=== PATIENT | male | born 1945 | race Caucasian/White ===

== ENCOUNTER 2017-04-18 12:58 | Observation (INO) | payer OTHER, MEDICARE ==
[~2017-04-18] VITALS: Ht 177.8 cm; Wt 97.6 kg
[2017-04-18 14:56] LABS: EOSINOPHIL (%) 8.1 % (0-5); EOSINOPHIL COUNT 0.6 K/uL (0-0.3); HEMATOCRIT 37.2 % (38.0-50.0); IMMATURE GRANULOCYTE (%) 0.4 % (0.0-0.7); LYMPHOCYTE COUNT 1.5 K/uL (1.0-2.8); MCH 29.6 PG (29.0-34.0); MCHC 32.5 G/DL (30.0-36.0); MEAN PLAT.VOLUME 11.5 uM^3 (9.0-12.4); MONOCYTE (%) 9.6 % (3-12); MONOCYTE COUNT 0.8 K/uL (0-0.8); PLATELET COUNT 226 K/uL (156-360); RBC DIS.WIDTH-SD 42.6 % (39-53); RED BLOOD COUNT 4.09 M/uL (4.00-5.50); WHITE BLOOD COUNT 7.9 K/uL (4.1-10.2)
[2017-04-18 15:02] LABS: INTER. NORMALIZED RATIO 1.1; PROTHROMBIN TIME 12.1 SEC (10.2-12.9)
[2017-04-18 15:05] LABS: PTT 32.4 SEC (25-37)
[2017-04-18 15:06] LABS: CHLORIDE 109 mEq/L (99-109); POTASSIUM 4.6 mEq/L (3.7-5.4); SODIUM 144 mEq/L (136-147)
[2017-04-18 15:08] LABS: GLUCOSE 85 mg/dL (70-99)
[2017-04-18 15:09] LABS: ANION GAP 12 MEQ/L (2-14)
[2017-04-18 15:11] LABS: GFR ESTIMATE (CALCULATED) 40 mL/min/
[2017-04-18 15:12] LABS: UREA NITROGEN (BUN) 24 mg/dL (9-23)
[2017-04-18 15:18] LABS: TROP-I INTERPRETATION NEGATIVE; TROPONIN-I 0.03 ng/mL (0.0-0.30)
[2017-04-18] MEDS ORDERED: VITAMIN C1000 MG PO (17:55)
[2017-04-18] MEDS ORDERED: TYLENOL ARTHRI650 MG PO (17:57)
[2017-04-18] MEDS ORDERED: COZAAR25 MG PO (17:57)
[2017-04-18] MEDS ORDERED: DAILY VALUE1 EACH PO (17:57)
[2017-04-18] MEDS ORDERED: NEURONTIN100 MG PO (17:58)
[2017-04-18] MEDS ORDERED: B-121000 MC2 PO (17:58)
[2017-04-18] MEDS ORDERED: LIPITOR40 MG PO (17:58)
[2017-04-18] MEDS ORDERED: MELATONIN10 M1 PO (17:59)
[2017-04-18] MEDS ORDERED: NYSTATIN-TRIAMC15 GM TP (17:59)
[2017-04-18] MEDS ORDERED: MOVE FREE JOIN1 EACH PO (17:59)
[2017-04-18] MEDS ORDERED: ARICEPT5 MG PO (18:00)
[2017-04-18] MEDS ORDERED: VOLTAREN 1% GE100 GM TP (18:00)
[2017-04-18] MEDS ORDERED: AVODART0.5 MG PO (18:00)
[2017-04-18] MEDS ORDERED: FLOMAX0.4 MG PO (18:01)
[2017-04-18] MEDS ORDERED: PROSCAR5 MG PO (18:01)
[2017-04-18] MEDS ORDERED: LOTRISONE15 GM TP (18:01)
[2017-04-18] MEDS ORDERED: ARAVA10 MG PO (18:01)
[2017-04-18] MEDS ORDERED: LO-DOSE ASPIRIN81 M1 PO (18:02)
[2017-04-18] MEDS ORDERED: IMODIUM A-D2 M2 PO (18:02)
[2017-04-18] MEDS ORDERED: ZOVIRAX5 GM TP (18:02)
[2017-04-18 19:14] LABS: TOTAL BILIRUBIN 0.3 mg/dL (0.0-1.0)
[2017-04-18 19:15] LABS: ALKALINE PHOSPHATASE 111 IU/L (3-129)
[2017-04-18 19:18] LABS: DIRECT BILIRUBIN 0.1 mg/dL (0.0-0.3)
[2017-04-18 19:19] LABS: LIPASE 48 U/L (1.0-51.0)
[2017-04-18 20:15] VITALS: BP 185/85
[2017-04-18 21:38] LABS: TROP-I INTERPRETATION NEGATIVE; TROPONIN-I 0.04 ng/mL (0.0-0.30)
[2017-04-19 00:09] VITALS: BP 179/89
[2017-04-19 03:36] VITALS: BP 165/81
[2017-04-19 03:48] LABS: TROP-I INTERPRETATION NEGATIVE; TROPONIN-I 0.03 ng/mL (0.0-0.30)
[2017-04-19 04:21] LABS: HDL CHOLESTEROL 27 MG/DL (Desirable>=40); LDL CHOLESTEROL 66 mg/dL (Desirable<100); NON-HDL CHOLESTEROL 111 mg/dL (Desirable<160); TOTAL CHOLESTEROL 138 mg/dL (Desirable<200); TRIGLYCERIDES 226 MG/DL (Normal: <150)
[2017-04-19 06:51] VITALS: BP 188/97
[2017-04-19 11:07] VITALS: BP 142/62
[2017-04-19] MEDS ORDERED: LOPRESSOR25 MG PO (12:52)
[2017-04-19] MEDS ORDERED: CYCLOBENZAPRINE5 MG PO (12:52)
[2017-04-19] MEDS ORDERED: TORADOL10 MG PO (12:56)
== END 2017-04-19 14:22 | disposition home or self-care (01) ==
LOC: EME 12:58 → EDOF 18:58 → 5WEST 18:58 → CANRESERV 19:00 → ENRESERV 19:00 → 5WEST 19:50 → ENPENDDIS 04-19 → 5WEST 04-19 14:22
PROVIDERS: Emergency Medicine; Physician Assistant Medical
DX: R07.89 Other chest pain (principal); R94.31 Abnormal electrocardiogram [ECG] [EKG]; I49.3 Ventricular premature depolarization; I12.9 Hypertensive chronic kidney disease with stage 1 through stage 4 chronic kidney disease, or unspecified chronic kidney disease; N18.9 Chronic kidney disease, unspecified; E78.5 Hyperlipidemia, unspecified; M35.3 Polymyalgia rheumatica; Z92.25 Personal history of immunosuppression therapy; E66.9 Obesity, unspecified; Z68.30 Body mass index [BMI] 30.0-30.9, adult; D72.829 Elevated white blood cell count, unspecified; N40.0 Benign prostatic hyperplasia without lower urinary tract symptoms; G43.909 Migraine, unspecified, not intractable, without status migrainosus; K58.9 Irritable bowel syndrome, unspecified; H81.09 Meniere's disease, unspecified ear; Z86.010 Personal history of colon polyps; D64.9 Anemia, unspecified; G89.29 Other chronic pain; M54.9 Dorsalgia, unspecified; M19.90 Unspecified osteoarthritis, unspecified site; B02.9 Zoster without complications
CPT/HCPCS: 71010; 71250; 78582; 80048; 80061; 80076; 82607; 83690; 84443; 84484; 85025; 85379; 85610; 85651; 85730; 93005; 99281; 99285; A9539; A9540; G0378; J1644; J2270; J7030